=== PATIENT | female | born 1950 | race Caucasian/White ===

== ENCOUNTER 2017-08-13 02:22 | Inpatient (IN) | payer MEDICARE ==
[~2017-08-13] VITALS: Ht 152.4 cm; Wt 38.8 kg
[2017-08-13] MEDS ORDERED: CYCLOBENZAPRINE5 MG PO (03:19)
[2017-08-13] MEDS ORDERED: IMODIUM2 MG PO (03:20)
[2017-08-13] MEDS ORDERED: HYDROCODON-ACE1 EAC9 PO (03:20)
[2017-08-13] MEDS ORDERED: FLOMAX0.4 MG PO (03:20)
[2017-08-13] MEDS ORDERED: TRAZODONE HCL50 MG PO (03:21)
[2017-08-13] MEDS ORDERED: TENORMIN100 MG PO (03:21)
[2017-08-13] MEDS ORDERED: METOPROLOL TART50 MG PO (03:22)
[2017-08-13] MEDS ORDERED: OMEPRAZOLE20 M1 PO (03:22)
[2017-08-13 04:00] VITALS: BP 108/55
[2017-08-13 04:22] VITALS: BP 117/61; BMI 15.6
[2017-08-13 06:23] VITALS: BP 108/60
[2017-08-13 07:00] VITALS: BP 113/63
[2017-08-13 13:50] LABS: HEMATOCRIT 31.4 % (36.0-48.0); HEMOGLOBIN 10.4 g/dL (12-16); INR 1.18 (0.85-1.17); MCH 28.8 pg (26.0-34.0); MCHC 33.1 g/dL (31.0-37.0); MEAN PLATELET VOLUME 9.5 fL (7.4-10.4); PLATELET COUNT 443 10x3/uL (130-400); PROTIME 14.5 SECONDS (11.6-15.0); RBC 3.61 10x6/uL (4.00-5.40); RDW 15.7 % (11.5-14.5); WBC 22.5 10x3/uL (4.8-10.8)
[2017-08-13 13:51] LABS: APTT 29.1 SECONDS (22.8-39.4)
[2017-08-13 14:05] LABS: % SATURATION 9 % (15-55); IRON 14 ug/dl (35-150); TOTAL IRON BIND CAPACITY 153 ug/dl (260-445); UNSAT IRON BIND CAPACITY 139 ug/dl (150-375)
[2017-08-13 14:23] LABS: LYMPHOCYTES 12 % (15-50); MONOCYTES 6 % (2-11); NEUTROPHILS 80 % (40-80); PLATELET ESTIMATE NORMAL
[2017-08-13 14:44] LABS: ALBUMIN 2.1 g/dL (3.4-5.0); ANION GAP 17.9 mmol/L (8-16); BILIRUBIN - TOTAL 0.57 mg/dL (0.2-1.3); CALCIUM 8.1 mg/dL (8.5-10.1); CARBON DIOXIDE 18.5 mmol/L (21.0-32.0); CREATININE - SERUM 1.2 mg/dL (0.6-1.3); MAGNESIUM - SERUM 1.2 mg/dL (1.8-2.4); POTASSIUM - SERUM 3.4 mmol/L (3.5-5.1); PROTEIN - SERUM 6.5 g/dL (6.4-8.2)
[2017-08-13 21:39] VITALS: BP 111/59
[2017-08-14 03:30] VITALS: BP 122/69
[2017-08-14 06:22] LABS: BASOPHILS 0.2 % (0-2); EOSINOPHILS 0.6 % (0-7); HEMATOCRIT 33.7 % (36.0-48.0); HEMOGLOBIN 11.2 g/dL (12-16); IMMATURE GRANULOCYTES 0.7 % (0-5); LYMPHOCYTES 12.7 % (15-50); MCH 29.2 pg (26.0-34.0); MCHC 33.2 g/dL (31.0-37.0); MCV 87.8 fL (80.0-100.0); MEAN PLATELET VOLUME 9.5 fL (7.4-10.4); MONOCYTES 5.8 % (2-11); PLATELET COUNT 492 10x3/uL (130-400); RBC 3.84 10x6/uL (4.00-5.40)
[2017-08-14 06:24] LABS: WBC 16.3 10x3/uL (4.8-10.8)
[2017-08-14 06:37] LABS: ANION GAP 17.4 mmol/L (8-16); CALCIUM 8.5 mg/dL (8.5-10.1); CARBON DIOXIDE 17.7 mmol/L (21.0-32.0); CREATININE - SERUM 1.1 mg/dL (0.6-1.3); MAGNESIUM - SERUM 1.2 mg/dL (1.8-2.4); PHOSPHOROUS 3.6 mg/dL (2.5-4.9); POTASSIUM - SERUM 3.1 mmol/L (3.5-5.1); PRE-ALBUMIN 10.8 mg/dL (18.0-35.7)
[2017-08-14 08:56] VITALS: BP 107/68
[2017-08-14 12:15] VITALS: BP 90/50
[2017-08-14 14:27] VITALS: Ht 152.4 cm; Wt 38.8 kg
[2017-08-14 16:19] VITALS: BP 103/54
[2017-08-14 19:00] VITALS: BP 95/58
[2017-08-15 04:00] VITALS: BP 94/63
[2017-08-15 06:52] LABS: BASOPHILS 0.1 % (0-2); EOSINOPHILS 0.8 % (0-7); HEMATOCRIT 31.2 % (36.0-48.0); IMMATURE GRANULOCYTES 0.5 % (0-5); LYMPHOCYTES 15.9 % (15-50); MCH 28.7 pg (26.0-34.0); MCHC 32.1 g/dL (31.0-37.0); MCV 89.4 fL (80.0-100.0); MEAN PLATELET VOLUME 9.4 fL (7.4-10.4); MONOCYTES 6.9 % (2-11); NEUTROPHILS 75.8 % (40-80); PLATELET COUNT 470 10x3/uL (130-400); RBC 3.49 10x6/uL (4.00-5.40); WBC 14.3 10x3/uL (4.8-10.8)
[2017-08-15 07:09] LABS: ANION GAP 18.2 mmol/L (8-16); CALCIUM 8.5 mg/dL (8.5-10.1); CARBON DIOXIDE 16.5 mmol/L (21.0-32.0); CREATININE - SERUM 1.2 mg/dL (0.6-1.3); POTASSIUM - SERUM 3.7 mmol/L (3.5-5.1)
[2017-08-15 08:20] LABS: FOLATE (FOLIC ACID) - SERUM 15.7 ng/mL (>3.0)
[2017-08-15 08:23] VITALS: BP 84/49
[2017-08-15 11:35] VITALS: BP 84/51
[2017-08-15 15:25] VITALS: BP 99/57
[2017-08-15 22:25] VITALS: BP 109/60
[2017-08-16 01:27] VITALS: BP 89/47
[2017-08-16 06:28] VITALS: BP 98/57
[2017-08-16 07:04] LABS: BASOPHILS 0.2 % (0-2); EOSINOPHILS 0.6 % (0-7); HEMATOCRIT 30.3 % (36.0-48.0); HEMOGLOBIN 9.5 g/dL (12-16); IMMATURE GRANULOCYTES 0.6 % (0-5); LYMPHOCYTES 15.8 % (15-50); MCH 28.4 pg (26.0-34.0); MCHC 31.4 g/dL (31.0-37.0); MCV 90.4 fL (80.0-100.0); MEAN PLATELET VOLUME 9.1 fL (7.4-10.4); MONOCYTES 6.9 % (2-11); NEUTROPHILS 75.9 % (40-80); PLATELET COUNT 442 10x3/uL (130-400); RBC 3.35 10x6/uL (4.00-5.40); RDW 16.3 % (11.5-14.5); WBC 13.1 10x3/uL (4.8-10.8)
[2017-08-16 07:20] LABS: ANION GAP 17.7 mmol/L (8-16); CALCIUM 7.6 mg/dL (8.5-10.1); CARBON DIOXIDE 14.9 mmol/L (21.0-32.0); CREATININE - SERUM 1.1 mg/dL (0.6-1.3); POTASSIUM - SERUM 3.6 mmol/L (3.5-5.1); VANCOMYCIN - TROUGH 21.9 ug/mL (10.0-20.0)
[2017-08-16 08:16] VITALS: BP 82/47
[2017-08-16 11:21] LABS: APPEARANCE HAZY (CLEAR); BILIRUBIN NEGATIVE (NEGATIVE); COLOR YELLOW (YELLOW); EPITHELIAL CELLS 0-5 /hpf (0-5); GLUCOSE NEGATIVE (NEGATIVE); KETONE NEGATIVE (NEGATIVE); NITRITE NEGATIVE (NEGATIVE); PROTEIN TRACE mg/dL (NEGATIVE); RED CELLS - URINE OCC /hpf (0-5); SPECIFIC GRAVITY 1.015 (1.005-1.020); UROBILINOGEN NORMAL (NORMAL); WHITE CELLS - URINE 0-5 /hpf (0-5)
[2017-08-16 11:22] LABS: AMORPHOUS SEDIMENT <1+ /lpf (NONE SEEN); BACTERIA FEW /hpf (NONE SEEN); GRANULAR CAST 0-5 /lpf (NONE SEEN); MUCUS >1+ /lpf (NONE SEEN)
[2017-08-16 11:43] VITALS: BP 82/49
[2017-08-16 15:40] VITALS: BP 87/52
[2017-08-16 19:00] VITALS: BP 153/56
[2017-08-17 00:35] VITALS: BP 94/49
[2017-08-17 04:00] VITALS: BP 94/42
[2017-08-17 07:09] LABS: BASOPHILS 0.2 % (0-2); EOSINOPHILS 0.9 % (0-7); HEMATOCRIT 30.8 % (36.0-48.0); HEMOGLOBIN 9.8 g/dL (12-16); IMMATURE GRANULOCYTES 0.5 % (0-5); LYMPHOCYTES 15.9 % (15-50); MCH 28.9 pg (26.0-34.0); MCHC 31.8 g/dL (31.0-37.0); MCV 90.9 fL (80.0-100.0); MEAN PLATELET VOLUME 9.4 fL (7.4-10.4); MONOCYTES 7.1 % (2-11); NEUTROPHILS 75.4 % (40-80); PLATELET COUNT 486 10x3/uL (130-400); RBC 3.39 10x6/uL (4.00-5.40); RDW 16.5 % (11.5-14.5); WBC 11.2 10x3/uL (4.8-10.8)
[2017-08-17 07:16] LABS: ANION GAP 16.7 mmol/L (8-16); CALCIUM 8.3 mg/dL (8.5-10.1); CARBON DIOXIDE 16.6 mmol/L (21.0-32.0); CREATININE - SERUM 1.4 mg/dL (0.6-1.3); POTASSIUM - SERUM 3.3 mmol/L (3.5-5.1)
[2017-08-17 08:35] VITALS: BP 105/58
[2017-08-17 12:26] VITALS: BP 110/58
[2017-08-17 14:29] LABS: HISTOPLASMA GAL MANNAN AG SER <0.5 (<0.5 ng/mL)
[2017-08-17 16:07] VITALS: BP 97/63
[2017-08-17 16:39] LABS: POTASSIUM - SERUM 3.6 mmol/L (3.5-5.1); VANCOMYCIN - TROUGH 15.2 ug/mL (10.0-20.0)
[2017-08-17 19:12] LABS: FUNGAL - ASP FLAVUS Negative (Neg:<1:1); FUNGAL - ASP NIGER Negative (Neg:<1:1); FUNGAL - ASPER FUMIGATUS Negative (Neg:<1:1)
[2017-08-17 21:38] VITALS: BP 93/51
[2017-08-18 01:44] VITALS: BP 89/45
[2017-08-18 05:22] LABS: BASOPHILS 0.2 % (0-2); HEMATOCRIT 33.9 % (36.0-48.0); HEMOGLOBIN 10.9 g/dL (12-16); IMMATURE GRANULOCYTES 0.6 % (0-5); LYMPHOCYTES 19.6 % (15-50); MCH 28.7 pg (26.0-34.0); MCHC 32.2 g/dL (31.0-37.0); MCV 89.2 fL (80.0-100.0); MEAN PLATELET VOLUME 9.8 fL (7.4-10.4); MONOCYTES 6.3 % (2-11); NEUTROPHILS 72.3 % (40-80); PLATELET COUNT 327 10x3/uL (130-400); RDW 16.6 % (11.5-14.5); WBC 12.6 10x3/uL (4.8-10.8)
[2017-08-18 05:33] LABS: ANION GAP 19.3 mmol/L (8-16); CALCIUM 8.1 mg/dL (8.5-10.1); CARBON DIOXIDE 14.8 mmol/L (21.0-32.0); CREATININE - SERUM 1.5 mg/dL (0.6-1.3); POTASSIUM - SERUM 4.1 mmol/L (3.5-5.1)
[2017-08-18 05:40] VITALS: BP 93/56
[2017-08-18 12:02] VITALS: BP 89/54
[2017-08-18 14:24] LABS: LEGIONELLA ANTIGEN - URINE Negative (Negative)
[2017-08-18 15:37] VITALS: BP 100/54
[2017-08-18 21:18] VITALS: BP 129/49
[2017-08-18 21:27] VITALS: BP 98/46
[2017-08-19 06:37] VITALS: BP 121/57
[2017-08-19 08:21] VITALS: BP 120/66
[2017-08-19 10:43] VITALS: BP 116/77
[2017-08-19 14:25] LABS: BASOPHILS 0.3 % (0-2); EOSINOPHILS 0.8 % (0-7); HEMATOCRIT 31.2 % (36.0-48.0); HEMOGLOBIN 9.7 g/dL (12-16); IMMATURE GRANULOCYTES 0.3 % (0-5); LYMPHOCYTES 22.3 % (15-50); MCH 28.5 pg (26.0-34.0); MCHC 31.1 g/dL (31.0-37.0); MONOCYTES 5.6 % (2-11); NEUTROPHILS 70.7 % (40-80); RDW 16.6 % (11.5-14.5); WBC 10.6 10x3/uL (4.8-10.8)
[2017-08-19 14:27] LABS: MCV 91.8 fL (80.0-100.0); PLATELET COUNT 471 10x3/uL (130-400)
[2017-08-19 14:45] LABS: ALBUMIN 2.2 g/dL (3.4-5.0); ANION GAP 15.4 mmol/L (8-16); BILIRUBIN - TOTAL 0.21 mg/dL (0.2-1.3); CALCIUM 7.8 mg/dL (8.5-10.1); CREATININE - SERUM 1.2 mg/dL (0.6-1.3); POTASSIUM - SERUM 3.8 mmol/L (3.5-5.1); PROTEIN - SERUM 6.5 g/dL (6.4-8.2)
[2017-08-19 14:47] LABS: CARBON DIOXIDE 19.4 mmol/L (21.0-32.0)
[2017-08-19 14:55] VITALS: BP 136/73
[2017-08-19 19:00] VITALS: BP 105/55
[2017-08-19 22:07] LABS: ACID FAST SMEAR Negative (()); AFB SPECIMEN PROCESSING Concentration (())
[2017-08-19 22:07] LABS: ACID FAST SMEAR Negative (()); AFB SPECIMEN PROCESSING Concentration (())
[2017-08-20] VITALS (7 sets, daily range): BP systolic 89–120; BP diastolic 48–64
[2017-08-20 04:30] LABS: BASOPHILS 0.2 % (0-2); EOSINOPHILS 1.4 % (0-7); HEMATOCRIT 29.8 % (36.0-48.0); HEMOGLOBIN 9.1 g/dL (12-16); IMMATURE GRANULOCYTES 0.6 % (0-5); LYMPHOCYTES 25.2 % (15-50); MCH 27.9 pg (26.0-34.0); MCHC 30.5 g/dL (31.0-37.0); MCV 91.4 fL (80.0-100.0); MONOCYTES 5.9 % (2-11); NEUTROPHILS 66.7 % (40-80); PLATELET COUNT 446 10x3/uL (130-400); RBC 3.26 10x6/uL (4.00-5.40); RDW 16.7 % (11.5-14.5); WBC 9.5 10x3/uL (4.8-10.8)
[2017-08-20 04:59] LABS: BILIRUBIN - TOTAL 0.2 mg/dL (0.2-1.3); CALCIUM 8.1 mg/dL (8.5-10.1); CREATININE - SERUM 1.1 mg/dL (0.6-1.3); PROTEIN - SERUM 6.7 g/dL (6.4-8.2); VANCOMYCIN - RANDOM 24.4 ug/mL (10.0-20.0)
[2017-08-20 05:08] LABS: ANION GAP 15.2 mmol/L (8-16); POTASSIUM - SERUM 3.2 mmol/L (3.5-5.1)
[2017-08-21 00:30] VITALS: BP 101/56
[2017-08-21 04:00] VITALS: BP 106/71
[2017-08-21 05:40] LABS: BASOPHILS 0.2 % (0-2); EOSINOPHILS 1.1 % (0-7); HEMATOCRIT 29.7 % (36.0-48.0); HEMOGLOBIN 9.1 g/dL (12-16); IMMATURE GRANULOCYTES 0.5 % (0-5); LYMPHOCYTES 19.8 % (15-50); MCH 28.1 pg (26.0-34.0); MCHC 30.6 g/dL (31.0-37.0); MCV 91.7 fL (80.0-100.0); MEAN PLATELET VOLUME 9.3 fL (7.4-10.4); MONOCYTES 5.8 % (2-11); NEUTROPHILS 72.6 % (40-80); PLATELET COUNT 459 10x3/uL (130-400); RBC 3.24 10x6/uL (4.00-5.40); RDW 16.5 % (11.5-14.5); WBC 10.7 10x3/uL (4.8-10.8)
[2017-08-21 06:06] LABS: ANION GAP 16.1 mmol/L (8-16); BILIRUBIN - TOTAL 0.2 mg/dL (0.2-1.3); CALCIUM 8.1 mg/dL (8.5-10.1); CARBON DIOXIDE 16.5 mmol/L (21.0-32.0); CREATININE - SERUM 1.1 mg/dL (0.6-1.3); POTASSIUM - SERUM 3.6 mmol/L (3.5-5.1); PROTEIN - SERUM 6.7 g/dL (6.4-8.2); VANCOMYCIN - RANDOM 17.8 ug/mL (10.0-20.0)
[2017-08-21 07:50] VITALS: BP 106/59
[2017-08-21 10:12] LABS: FUNGUS STAIN Final report (())
[2017-08-21 10:12] LABS: FUNGUS STAIN Final report (())
[2017-08-21 11:47] VITALS: BP 107/60
[2017-08-21 15:37] VITALS: BP 110/64
[2017-08-21 19:00] VITALS: BP 91/49
[2017-08-22 04:00] VITALS: BP 105/60
[2017-08-22 04:54] LABS: BASOPHILS 0.3 % (0-2); EOSINOPHILS 1.3 % (0-7); HEMATOCRIT 32.3 % (36.0-48.0); HEMOGLOBIN 9.8 g/dL (12-16); IMMATURE GRANULOCYTES 0.3 % (0-5); LYMPHOCYTES 28.6 % (15-50); MCH 28.3 pg (26.0-34.0); MCHC 30.3 g/dL (31.0-37.0); MCV 93.4 fL (80.0-100.0); MEAN PLATELET VOLUME 9.2 fL (7.4-10.4); MONOCYTES 6.3 % (2-11); NEUTROPHILS 63.2 % (40-80); PLATELET COUNT 485 10x3/uL (130-400); RBC 3.46 10x6/uL (4.00-5.40); RDW 16.6 % (11.5-14.5); WBC 9.5 10x3/uL (4.8-10.8)
[2017-08-22 05:33] LABS: ALBUMIN 2.2 g/dL (3.4-5.0); ANION GAP 15.3 mmol/L (8-16); BILIRUBIN - TOTAL 0.22 mg/dL (0.2-1.3); CALCIUM 8.2 mg/dL (8.5-10.1); CARBON DIOXIDE 19.2 mmol/L (21.0-32.0); CREATININE - SERUM 1.2 mg/dL (0.6-1.3); POTASSIUM - SERUM 3.5 mmol/L (3.5-5.1); PROTEIN - SERUM 7.2 g/dL (6.4-8.2); VANCOMYCIN - RANDOM 18.5 ug/mL (10.0-20.0)
[2017-08-22 08:02] VITALS: BP 105/54
[2017-08-22 11:10] VITALS: BP 109/63
[2017-08-22 15:38] VITALS: BP 90/52
[2017-08-22 16:16] LABS: ACID FAST SMEAR Negative (()); AFB SPECIMEN PROCESSING Concentration (())
[2017-08-22 21:47] VITALS: BP 95/56
[2017-08-23 01:54] VITALS: BP 94/61
[2017-08-23 05:26] LABS: BASOPHILS 0.3 % (0-2); EOSINOPHILS 1.3 % (0-7); HEMATOCRIT 31.8 % (36.0-48.0); HEMOGLOBIN 9.7 g/dL (12-16); IMMATURE GRANULOCYTES 0.3 % (0-5); LYMPHOCYTES 28.9 % (15-50); MCH 28.1 pg (26.0-34.0); MCHC 30.5 g/dL (31.0-37.0); MCV 92.2 fL (80.0-100.0); MEAN PLATELET VOLUME 9.4 fL (7.4-10.4); MONOCYTES 5.3 % (2-11); NEUTROPHILS 63.9 % (40-80); PLATELET COUNT 425 10x3/uL (130-400); RBC 3.45 10x6/uL (4.00-5.40); RDW 16.5 % (11.5-14.5); WBC 10.6 10x3/uL (4.8-10.8)
[2017-08-23 05:53] VITALS: BP 103/57
[2017-08-23 06:20] LABS: ALBUMIN 2.2 g/dL (3.4-5.0); ANION GAP 17.6 mmol/L (8-16); BILIRUBIN - TOTAL 0.18 mg/dL (0.2-1.3); CARBON DIOXIDE 17.3 mmol/L (21.0-32.0); CREATININE - SERUM 1.2 mg/dL (0.6-1.3); POTASSIUM - SERUM 3.9 mmol/L (3.5-5.1); PROTEIN - SERUM 6.5 g/dL (6.4-8.2); VANCOMYCIN - RANDOM 12.5 ug/mL (10.0-20.0)
[2017-08-23 06:25] LABS: MAGNESIUM - SERUM 0.8 mg/dL (1.8-2.4)
[2017-08-23 08:11] VITALS: BP 106/60
[2017-08-23 11:18] LABS: FUNGUS STAIN Final report (())
[2017-08-23 11:44] VITALS: BP 108/63
[2017-08-23 15:24] VITALS: BP 115/66
[2017-08-23 19:00] VITALS: BP 108/60
[2017-08-24 04:52] VITALS: BP 101/64
[2017-08-24 05:40] LABS: BASOPHILS 0.3 % (0-2); EOSINOPHILS 1.2 % (0-7); HEMATOCRIT 30.5 % (36.0-48.0); HEMOGLOBIN 9.6 g/dL (12-16); IMMATURE GRANULOCYTES 0.2 % (0-5); LYMPHOCYTES 32.5 % (15-50); MCH 28.3 pg (26.0-34.0); MCHC 31.5 g/dL (31.0-37.0); MEAN PLATELET VOLUME 9.7 fL (7.4-10.4); MONOCYTES 7.7 % (2-11); NEUTROPHILS 58.1 % (40-80); PLATELET COUNT 424 10x3/uL (130-400); RBC 3.39 10x6/uL (4.00-5.40); RDW 16.1 % (11.5-14.5); WBC 9.8 10x3/uL (4.8-10.8)
[2017-08-24 05:50] LABS: ALBUMIN 2.1 g/dL (3.4-5.0); ANION GAP 16.5 mmol/L (8-16); BILIRUBIN - TOTAL 0.19 mg/dL (0.2-1.3); CALCIUM 7.8 mg/dL (8.5-10.1); CARBON DIOXIDE 18.9 mmol/L (21.0-32.0); CREATININE - SERUM 1.1 mg/dL (0.6-1.3); POTASSIUM - SERUM 3.4 mmol/L (3.5-5.1); PROTEIN - SERUM 6.9 g/dL (6.4-8.2); VANCOMYCIN - RANDOM 15.3 ug/mL (10.0-20.0)
[2017-08-24 06:32] LABS: MAGNESIUM - SERUM 0.7 mg/dL (1.8-2.4)
[2017-08-24 08:19] VITALS: BP 108/53
[2017-08-24 11:32] VITALS: BP 110/61
[2017-08-24 15:44] VITALS: BP 106/58
[2017-08-24 20:53] VITALS: BP 128/64
[2017-08-25 06:08] VITALS: BP 98/59
[2017-08-25 07:51] VITALS: BP 106/51
[2017-08-25 15:22] LABS: FUNGUS CULTURE RESULT 1 Candida albicans (()); FUNGUS MYCOLOGY CULTURE Preliminary report (())
[2017-08-25 15:22] LABS: FUNGUS CULTURE RESULT 1 Candida dubliniensis (()); FUNGUS MYCOLOGY CULTURE Preliminary report (())
[2017-08-25 15:30] VITALS: BP 126/80
[2017-08-25 15:55] VITALS: BP 94/58
[2017-08-25 19:00] VITALS: BP 104/54
[2017-08-26 04:00] VITALS: BP 92/52
[2017-08-26 07:16] LABS: BASOPHILS 0.4 % (0-2); EOSINOPHILS 1.7 % (0-7); HEMATOCRIT 30.3 % (36.0-48.0); HEMOGLOBIN 9.5 g/dL (12-16); IMMATURE GRANULOCYTES 0.2 % (0-5); MCH 28.3 pg (26.0-34.0); MCHC 31.4 g/dL (31.0-37.0); MCV 90.2 fL (80.0-100.0); MEAN PLATELET VOLUME 9.5 fL (7.4-10.4); MONOCYTES 6.7 % (2-11); PLATELET COUNT 389 10x3/uL (130-400); RBC 3.36 10x6/uL (4.00-5.40); RDW 16.2 % (11.5-14.5); WBC 9.2 10x3/uL (4.8-10.8)
[2017-08-26 07:37] LABS: CALCIUM 8.5 mg/dL (8.5-10.1); CARBON DIOXIDE 18.8 mmol/L (21.0-32.0); CREATININE - SERUM 1.1 mg/dL (0.6-1.3); POTASSIUM - SERUM 3.8 mmol/L (3.5-5.1); VANCOMYCIN - RANDOM 17.8 ug/mL (10.0-20.0)
[2017-08-26 09:50] VITALS: BP 116/58
[2017-08-26 12:15] VITALS: BP 104/60
[2017-08-26 15:58] VITALS: BP 119/61
[2017-08-26 20:40] VITALS: BP 93/67
[2017-08-27 00:15] VITALS: BP 89/55
[2017-08-27 05:09] VITALS: BP 100/60
[2017-08-27 07:41] VITALS: BP 101/58
[2017-08-27 11:37] VITALS: BP 96/52
[2017-08-27 15:49] VITALS: BP 102/54
[2017-08-27 20:58] VITALS: BP 110/55
[2017-08-28 01:12] VITALS: BP 88/51
[2017-08-28 05:58] VITALS: BP 109/55
[2017-08-28 08:01] VITALS: BP 95/53
[2017-08-28] MEDS ORDERED: VIBRAMYCIN 100100 MG PO (11:18)
[2017-08-28 11:27] VITALS: BP 120/58
[2017-08-28] MEDS ORDERED: TESSALON PERLE100 MG PO (11:55)
[2017-08-28] MEDS ORDERED: MUCINEX DM ER1 EAC1 PO (11:55)
[2017-08-28 14:21] LABS: FUNGUS CULTURE RESULT 1 Candida albicans (()); FUNGUS MYCOLOGY CULTURE Preliminary report (())
== END 2017-08-28 14:12 | disposition home or self-care (01) | DRG 871 ==
LOC: D.M2 02:22
PROVIDERS: Family Medicine; Internal Medicine Nephrology; Internal Medicine Pulmonary Disease; Student in an Organized Health Care Education/Training Program
DX: A41.02 Sepsis due to Methicillin resistant Staphylococcus aureus (principal); J18.9 Pneumonia, unspecified organism; J96.01 Acute respiratory failure with hypoxia; E43 Unspecified severe protein-calorie malnutrition; N39.0 Urinary tract infection, site not specified; Z68.1 Body mass index [BMI] 19.9 or less, adult; J44.0 Chronic obstructive pulmonary disease with (acute) lower respiratory infection; D68.9 Coagulation defect, unspecified; I38 Endocarditis, valve unspecified; D47.3 Essential (hemorrhagic) thrombocythemia; F41.9 Anxiety disorder, unspecified; D50.9 Iron deficiency anemia, unspecified; E87.6 Hypokalemia; E83.42 Hypomagnesemia; J32.9 Chronic sinusitis, unspecified; I12.9 Hypertensive chronic kidney disease with stage 1 through stage 4 chronic kidney disease, or unspecified chronic kidney disease; N18.9 Chronic kidney disease, unspecified; Z85.038 Personal history of other malignant neoplasm of large intestine